=== PATIENT | female | born 1975 | race Caucasian/White ===

== ENCOUNTER 2017-02-27 13:56 | Emergency (ER) | payer OTHER ==
[~2017-02-27] VITALS: Ht 160 cm; Wt 73.7 kg
[~2017-02-27 13:56] MED LIST: ACETAMINOPHEN/O1 TA3 PO; ATIVAN2 M1 PO; COL100 PO; FIORICET1 TAB PO; FLO4 PO; LORAZEPAM1 MG PO; MOTRIN800 MG PO; NAP500 PO; NOR10T PO; PROZAC10 M1 PO; PYR100 PO; TOPAMAX25 MG PO; TRAZODONE HYDR100 MG PO; TRAZODONE50 MG PO
[2017-02-27 14:01] VITALS: BP 141/101
[2017-02-27 16:13] LABS: BASOPHIL % 0.3 % (0-2); PLATELET COUNT 274 x10^3mcL (130-400); RED CELL DISTRIBUTION WIDTH 13.6 % (11.5-14.5)
== END 2017-02-27 17:04 | disposition home or self-care (01) ==
LOC: ED 13:56
PROVIDERS: Emergency Medicine
DX: N93.8 Other specified abnormal uterine and vaginal bleeding (principal)
CPT/HCPCS: J1885

== ENCOUNTER 2017-03-13 10:48 | Emergency (ER) | payer OTHER ==
[2017-03-13 13:53] VITALS: BP 118/84
== END 2017-03-13 13:53 | disposition home or self-care (01) ==
LOC: ED 10:48
DX: G43.909 Migraine, unspecified, not intractable, without status migrainosus (principal); E03.9 Hypothyroidism, unspecified; F31.9 Bipolar disorder, unspecified
CPT/HCPCS: J3030

== ENCOUNTER 2017-06-17 06:17 | Emergency (ER) | payer OTHER ==
[2017-06-17 07:49] VITALS: BP 131/91
== END 2017-06-17 07:49 | disposition home or self-care (01) ==
LOC: ED 06:17
DX: G89.29 Other chronic pain (principal); M54.5 Low back pain; R03.0 Elevated blood-pressure reading, without diagnosis of hypertension; F41.9 Anxiety disorder, unspecified
CPT/HCPCS: J3010

== ENCOUNTER 2017-08-06 10:10 | Emergency (ER) | payer OTHER ==
[2017-08-06 11:56] VITALS: BP 111/78
== END 2017-08-06 12:15 | disposition home or self-care (01) ==
LOC: ED 10:10
DX: M54.42 Lumbago with sciatica, left side (principal); E07.9 Disorder of thyroid, unspecified; Z87.442 Personal history of urinary calculi
CPT/HCPCS: J3010

== ENCOUNTER 2018-04-13 12:47 | Emergency (ER) | payer OTHER ==
[~2018-04-13] VITALS: Ht 160 cm; Wt 71.7 kg
[2018-04-13 13:18] VITALS: BP 137/94; Ht 160 cm; Wt 71.7 kg
== END 2018-04-13 15:24 | disposition left against medical advice (07) ==
LOC: ED 12:47
DX: Z53.21 Procedure and treatment not carried out due to patient leaving prior to being seen by health care provider (principal)

== ENCOUNTER 2018-04-14 07:16 | Emergency (ER) | payer OTHER ==
[~2018-04-14] VITALS: Ht 160 cm; Wt 73.0 kg
[2018-04-14 07:39] VITALS: Ht 160 cm; Wt 73.0 kg
[2018-04-14 08:35] LABS: BASOPHIL % 0.3 % (0-2); PLATELET COUNT 335 x10^3mcL (130-400); RED CELL DISTRIBUTION WIDTH 13.1 % (11.5-14.5)
[2018-04-14 08:41] LABS: CALCIUM 8.3 mg/dL (8.5-10.1); CARBON DIOXIDE 25.1 mmol/L (21-32); CHLORIDE SERUM 106 mmol/L (98-107); GLUCOSE SERUM 92 mg/dL (74-106); POTASSIUM SERUM 3.3 mmol/L (3.5-5.1); SODIUM SERUM 138 mmol/L (136-145)
[2018-04-14 08:46] LABS: ALBUMIN 3.8 g/dL (3.4-5.0); ALKALINE PHOSPHATASE 71 U/L (46-116); ALT/SGPT 50 U/L (14-59); AST/SGOT 31 U/L (15-37); BILIRUBIN TOTAL 0.6 mg/dL (0.20-1.00); TOTAL PROTEIN, SERUM 7.7 g/dL (6.4-8.2)
[2018-04-14 08:52] LABS: CREATININE SERUM 0.7 mg/dL (0.6-1.0); GFR1 > 60 mL/min
[2018-04-14 08:58] LABS: microscopic required? YES; urine erythrocyte 3+ (NEGATIVE)
[2018-04-14 12:15] VITALS: BP 121/66
== END 2018-04-14 12:15 | disposition home or self-care (01) ==
LOC: ED 07:16
PROVIDERS: Emergency Medicine
DX: N23 Unspecified renal colic (principal); I10 Essential (primary) hypertension; Z90.49 Acquired absence of other specified parts of digestive tract
CPT/HCPCS: J1885; J2405; J7030

== ENCOUNTER 2019-05-19 15:02 | Emergency (ER) | payer OTHER ==
[~2019-05-19] VITALS: Ht 160 cm; Wt 74.4 kg
[2019-05-19 15:06] VITALS: Ht 160 cm; Wt 74.4 kg
[2019-05-19 18:19] LABS: microscopic required? YES; urine erythrocyte 1+ (NEGATIVE)
[2019-05-19 18:21] LABS: BASOPHIL % 0.4 % (0-2); PLATELET COUNT 352 x10^3mcL (130-400); RED CELL DISTRIBUTION WIDTH 12.6 % (11.5-14.5)
[2019-05-19 18:26] LABS: CALCIUM 8.6 mg/dL (8.5-10.1); CARBON DIOXIDE 27.5 mmol/L (21-32); CHLORIDE SERUM 106 mmol/L (98-107); CREATININE SERUM 0.8 mg/dL (0.6-1.0); GFR1 > 60 mL/min; GLUCOSE SERUM 112 mg/dL (74-106); POTASSIUM SERUM 3.5 mmol/L (3.5-5.1); SODIUM SERUM 141 mmol/L (136-145)
[2019-05-19 18:31] LABS: ALBUMIN 3.6 g/dL (3.4-5.0); ALKALINE PHOSPHATASE 56 U/L (46-116); ALT/SGPT 48 U/L (14-59); AST/SGOT 25 U/L (15-37); BILIRUBIN TOTAL 0.3 mg/dL (0.20-1.00); TOTAL PROTEIN, SERUM 7.5 g/dL (6.4-8.2); URIC ACID 3.6 mg/dL (2.6-6.0)
[2019-05-19 20:55] VITALS: BP 123/82
== END 2019-05-19 20:55 | disposition home or self-care (01) ==
LOC: ED 15:02
PROVIDERS: Emergency Medicine
DX: N10 Acute pyelonephritis (principal); K57.30 Diverticulosis of large intestine without perforation or abscess without bleeding; I10 Essential (primary) hypertension; F41.9 Anxiety disorder, unspecified; E03.9 Hypothyroidism, unspecified; Z87.442 Personal history of urinary calculi; Z90.49 Acquired absence of other specified parts of digestive tract
CPT/HCPCS: J0696; J1885; J2405; J7030

== ENCOUNTER 2020-05-27 16:54 | Emergency (ER) | payer MEDICAID, SELFPAY ==
[~2020-05-27] VITALS: Ht 160 cm; Wt 68.0 kg
[2020-05-27 16:57] VITALS: BP 140/101; Ht 160 cm; Wt 68.0 kg
== END 2020-05-27 19:10 | disposition home or self-care (01) ==
LOC: ED 16:54
DX: U07.1 COVID-19 (principal); I10 Essential (primary) hypertension; E03.9 Hypothyroidism, unspecified; Z90.49 Acquired absence of other specified parts of digestive tract; Z87.442 Personal history of urinary calculi
CPT/HCPCS: Q0092; U0003-CS

== ENCOUNTER 2020-09-20 20:20 | Emergency (ER) | payer OTHER ==
[~2020-09-20] VITALS: Ht 160 cm; Wt 75.3 kg
[2020-09-20 20:47] VITALS: Ht 160 cm; Wt 75.3 kg
[2020-09-20 21:33] LABS: BASOPHIL % 0.5 % (0-2); PLATELET COUNT 280 x10^3mcL (130-400); RED CELL DISTRIBUTION WIDTH 13.2 % (11.5-14.5)
[2020-09-20 21:43] LABS: CALCIUM 8.6 mg/dL (8.5-10.1); CARBON DIOXIDE 24.8 mmol/L (21-32); CREATININE SERUM 1.1 mg/dL (0.6-1.0); POTASSIUM SERUM 3.5 mmol/L (3.5-5.1)
[2020-09-20 21:48] LABS: ALBUMIN 3.9 g/dL (3.4-5.0); BILIRUBIN TOTAL 0.3 mg/dL (0.20-1.00); TOTAL PROTEIN, SERUM 7.5 g/dL (6.4-8.2)
[2020-09-21 00:39] VITALS: BP 130/91
== END 2020-09-21 00:39 | disposition home or self-care (01) ==
LOC: ED 20:20
PROVIDERS: Specialist
DX: N23 Unspecified renal colic (principal); I10 Essential (primary) hypertension; E03.9 Hypothyroidism, unspecified; Z87.442 Personal history of urinary calculi; Z90.49 Acquired absence of other specified parts of digestive tract
CPT/HCPCS: J1885; J2270; J2405; J7030